=== PATIENT | male | born 1955 | race Caucasian/White ===

== ENCOUNTER 2017-03-25 15:42 | Emergency (ER) | payer BC ==
[2017-03-25 16:11] VITALS: BP 155/73
--- NOTE | 2017-03-25 16:13 | UC ---
Respiratory Complaint HPI - HPI Summary HPI Summary: 9-10 days of worsening sinus pain congestion and cough - History of Current Complaint Hx Obtained From: Patient Onset/Duration: Gradual Onset, Lasting Days - 9, Still Present, Worse Since - getting worse daily Timing: Constant Severity Initially: Mild Severity Currently: Moderate Pain Intensity: 6 Pain Scale Used: 0-10 Numeric Character: Cough: Productive Aggravating Factors: Recumbent Position Alleviating Factors: Nothing Associated Signs And Symptoms: Positive: Nasal Congestion, Sinus Discomfort <Annamarie Perales - Last Filed: 03/25/17 16:51> <Jasmina Pete - Last Filed: 03/25/17 17:32> - History of Current Complaint Chief Complaint: UCRespiratory Stated Complaint: COUGH,CONGESTION,COLD Time Seen by Provider: 03/25/17 16:06 - Allergies/Home Medications Allergies/Adverse Reactions: Allergies Allergy/AdvReac Type Severity Reaction Status Date / Time Penicillins Allergy Rash Verified 02/19/15 10:31 PMH/Surg Hx/FS Hx/Imm Hx Previously Healthy: No Cardiovascular History Of: Reports: Hypertension - Surgical History Surgical History: None - Family History Known Family History: Positive: None Family History: no reported cardiovascular issues in family lineage - Social History Occupation: Employed Full-time Lives: With Family Alcohol Use: Weekly Alcohol Amount: red wine Substance Use Type: None Smoking Status (MU): Never Smoked Tobacco Have You Smoked in the Last Year: No <Annamarie Perales - Last Filed: 03/25/17 16:51> Review of Systems Constitutional: Negative Skin: Negative Eyes: Negative ENT: Nasal Discharge Respiratory: Cough Cardiovascular: Negative Gastrointestinal: Negative Genitourinary: Negative Motor: Negative Neurovascular: Negative Musculoskeletal: Negative Neurological: Headache - frontal/maxillary sinus pain Psychological: Negative All Other Systems Reviewed And Are Negative: Yes <Annamarie Perales - Last Filed: 03/25/17 16:51> Physical Exam Triage Information Reviewed: Yes Appearance: Well-Appearing, No Pain Distress, Well-Nourished Vital Signs: Initial Vital Signs Temp 98.2 F 03/25/17 16:08 Pulse 62 03/25/17 16:08 Resp 18 03/25/17 16:08 BP 155/73 03/25/17 16:08 Pulse Ox 98 03/25/17 16:08 Vital Signs Reviewed: Yes Eye Exam: Normal Eyes: Positive: Conjunctiva Clear ENT Exam: Normal ENT: Positive: Normal ENT inspection, Hearing grossly normal, Pharynx normal, Nasal congestion, Nasal drainage. Negative: TMs normal, Tonsillar swelling, Tonsillar exudate, Trismus, Muffled/hoarse voice Dental Exam: Normal Neck exam: Normal Neck: Positive: Supple, Nontender, No Lymphadenopathy Respiratory Exam: Normal Respiratory: Positive: Chest non-tender, Lungs clear, Normal breath sounds, No respiratory distress, No accessory muscle use Cardiovascular Exam: Normal Cardiovascular: Positive: RRR, No Murmur, Pulses Normal, Brisk Capillary Refill Musculoskeletal Exam: Normal Musculoskeletal: Positive: Strength Intact, ROM Intact, No Edema Neurological Exam: Normal Neurological: Positive: Alert, Muscle Tone Normal Psychological Exam: Normal Skin Exam: Normal <Annamarie Perales - Last Filed: 03/25/17 16:51> Vital Signs: Initial Vital Signs Temp 98.2 F 03/25/17 16:08 Pulse 62 03/25/17 16:08 Resp 18 03/25/17 16:08 BP 155/73 03/25/17 16:08 Pulse Ox 98 03/25/17 16:08 <Jasmina Pete - Last Filed: 03/25/17 17:32> UC Diagnostic Evaluation - Laboratory O2 Sat by Pulse Oximetry: 98 <Annamarie Perales - Last Filed: 03/25/17 16:51> Respiratory Course/Dx - Course Course Of Treatment: zithromax, flonase, albuterol, robitussin and codiene, hypertension-poor control, follow with pcp - Differential Dx/Diagnosis Differential Diagnosis/HQI/PQRI: Asthma, Bronchitis, Laryngitis, Lower Resp Infection, Sinusitis Provider Diagnoses: Hypertension with poor control, Sinusitis <Annamarie Perales - Last Filed: 03/25/17 16:51> Discharge <Annamarie Perales - Last Filed: 03/25/17 16:51> <Jasmina Pete - Last Filed: 03/25/17 17:32> - Discharge Plan Condition: Stable Disposition: HOME Prescriptions: Albuterol HFA INHALER* [Ventolin HFA Inhaler*] 2 puff INH Q4H PRN #1 mdi PRN Reason: Chest tightness cough Azithromycin TAB* [Zithromax TAB (Z-CJ) 250 mg #6 tabs] 2 tab PO .TODAY, THEN 1 DAILY #1 cj Fluticasone NASAL SPRAY 50MCG* [Flonase NASAL SPRAY 50MCG*] 2 spray BOTH NARES DAILY #1 btl guaiFENesin/CODIEN 100MG-10MG* [Robitussin AC 100Mg-10Mg*] 10 ml PO Q4H PRN # 120 udc MDD 60ml PRN Reason: Cough Patient Education Materials: Sinusitis (ED), How to Use a Metered-Dose Inhaler (ED), DASH Eating Plan (ED), Hypertension (ED), Acute Cough (ED), How to Use Nasal [employer] (ED) Referrals: No Primary Care Phys,NOPCP [Medical Doctor] - Additional Instructions: Follow with your provider in [place] in the next 1-2 weeks Attestation Statement User Type: Provider - I was available for consult. This patient was seen by the ROSITA. The patient was not presented to, seen by, or examined by me. - Viviane <Jasmina Pete - Last Filed: 03/25/17 17:32>
== END 2017-03-25 16:27 | disposition home or self-care (01) ==
LOC: UCEAST 15:42
DX: I10 Essential (primary) hypertension (principal); J32.9 Chronic sinusitis, unspecified
CPT/HCPCS: 99212; G0463